=== PATIENT | female | born 1960 | race Caucasian/White ===

== ENCOUNTER → 2017-06-12 | Outpatient (CLI) | payer OTHER, MEDICARE ==
[~2017-06-12] MED LIST: AMI25 PO; ASPI-715 PO; ATEN-65 PO; ATOR20TA22 PO; BENZ100C4 PO; CHOL10005 PO; CHOL200025 PO; CIP500 PO; CLO5 PO; CLON-308 PO; CODE118S5 PO; DICL-190 PO; DICL-192 PO; DUL20 PO; DULO60CA51 PO; FLAX100041 PO; GABA-1 PO; HYDR-4309 PO; LEVO500T83 PO; LEVO750T11 PO; LISI20TA29 PO; LOR5/325 PO; METR-1 PO; METR1KIT TP; MIL50PT PO; MILN12.52 PO; NOR5/325 PO; OMEP-153 PO; OMEP-218 PO; OMEP40CA48 PO; ONDA4TAB SL; OXYC1TAB54 PO; PER PO; PHENA200 PO; PRED20TA6 PO; SUCR1ORA17 PO; TOLT2TAB PO; TOLT4CAP PO; TRAM-627 PO; VILA40TA PO; [UNRECOGNIZED DRUG - CODE] PO
--- NOTE | 2017-06-14 09:06 | RADIOLOGY IMAGING REPORT ---
[place] [facility] [place] YESI KLINE : [id number] MR: [id number] V: [id number] EXAM DATE: ORDERING PHYSICIAN: KIMBERLYN VAN TECHNOLOGIST: Dasia Lang PROCEDURE:BILATERAL DIAGNOSTIC DIGITAL MAMMOGRAM WITH CAD ASSISTED INTERPRETATION & 3D TOMOSYNTHESIS COMPARISON:Prior mammograms 05/17/16, 10/28/15, 05/26/15, 12/08/14 INDICATIONS:6 MO F/U FINDINGS: Moderately heterogeneous fibroglandular tissue is again seen throughout the breasts. The parenchymal pattern has remained stable allowing for difference in mammographic technique & patient positioning. The scattered calcifications seen throughout the breasts, left side more so than right. The calcifications appear to have remained relatively stable. There is no demonstration of malignant appearing mass, malignant appearing calcifications or other secondary sign of malignancy in either breast. DIAGNOSTIC CATEGORY 2--BENIGN FINDING. RECOMMENDATIONS: ROUTINE MAMMOGRAM AND CLINICAL EVALUATION. IMPRESSION: BIRADS 2: Benign finding No significant abnormality is seen Dictated by: Joceline Keller M.D. on 06/12/2017 at 16:59 Transcribed by: IZA on 06/13/2017 at 11:19 Approved by: Joceline Keller M.D. on 06/14/2017 at 9:05 [facility]
== END ==
LOC: MAMO 07:26
PROVIDERS: ATTEND Family Medicine
DX: R92.1 Mammographic calcification found on diagnostic imaging of breast (principal)
CPT/HCPCS: 77062; 77066

== ENCOUNTER → 2018-04-24 | Outpatient (CLI) | payer OTHER, MEDICARE ==
[~2018-04-24] MED LIST changes: -CLON-308 PO; +CLON-335 PO; -HYDR-4309 PO; +HYDR-653 PO
--- NOTE | 2018-04-24 12:04 | RADIOLOGY IMAGING REPORT ---
FACILITY: [facility] PATIENT NAME: Yoana Treviño : 1960 MR: [id number] V: [id number] EXAM DATE: ORDERING PHYSICIAN: KIMBERLYN VAN TECHNOLOGIST: Location: [facility] Patient: Yoana Treviño : 1960 Visit/Account:[id number] Date of Sevice: 04/24/2018 Exam type: CHEST PA AND LAT History: Cough for months, chest pressure Comparison: September 28, 2016 Findings: The lung are free of acute effusions, infiltrates or edema. The cardiac silhouette is normal in size . The trachea is midline. There are postsurgical changes lower cervical spine which are incompletel y imaged. IMPRESSION: 1. No acute cardiopulmonary process is seen Report Dictated By: Joceline Keller MD at 04/24/2018 11:59 AM Report E-Signed By: Joceline Keller MD at 04/24/2018 12:00 PM WSN:[email or web address]
== END ==
LOC: RAD 11:05
PROVIDERS: ATTEND Family Medicine
DX: R05 Cough (principal)
CPT/HCPCS: 71046

== ENCOUNTER → 2018-10-14 | Outpatient (CLI) | payer OTHER, MEDICARE | LOC: LAB 08:29 | PROVIDERS: ATTEND Nurse Practitioner Family | DX: R73.01 Impaired fasting glucose (principal); E87.8 Other disorders of electrolyte and fluid balance, not elsewhere classified; E55.9 Vitamin D deficiency, unspecified; E53.8 Deficiency of other specified B group vitamins; R53.81 Other malaise; E79.0 Hyperuricemia without signs of inflammatory arthritis and tophaceous disease | CPT/HCPCS: 36415; 82040; 82247; 82306; 82310; 82374; 82435; 82565; 82607; 82947; 83036; 84075; 84132; 84155; 84295; 84443; 84450; 84460; 84520; 84550 ==

== ENCOUNTER → 2018-10-21 | Outpatient (CLI) | payer OTHER, MEDICARE ==
--- NOTE | 2018-10-21 10:57 | EKG ---
FACILITY: [facility] - [place] PATIENT NAME: YEIS KLINE : [id number] MR: [id number] V: [id number] EXAM DATE: ORDERING PHYSICIAN: ROHAN MATTA TECHNOLOGIST: DEJUAN Lucero Reason : CP Blood Pressure : / mmHG Vent. Rate : 082 BPM Atrial Rate : 082 BPM P-R Int : 146 ms QRS Dur : 070 ms QT Int : 346 ms P-R-T Axes : 053 028 026 degrees QTc Int : [address]-T changes through precordial leads appear somewhat more prominent than previous EKG, but similar t o 02/22/14 Abnormal ECG Confirmed by KEELEY ZHENG ([id number]) on 10/21/2018 12:18:01 PM Referred By: SIGRID Confirmed By:KEELEY ZHENG
== END ==
LOC: LAB 10:36
PROVIDERS: ATTEND Nurse Practitioner Family
DX: R07.9 Chest pain, unspecified (principal); R53.83 Other fatigue; R06.00 Dyspnea, unspecified; R94.31 Abnormal electrocardiogram [ECG] [EKG]
CPT/HCPCS: 36415; 84484; 85379; 93005

== ENCOUNTER → 2018-10-29 | Outpatient (CLI) | payer OTHER, MEDICARE ==
[~2018-10-29] MED LIST changes: +REGADENOSON 0.4 MG/5 ML SYR ONE
--- NOTE | 2018-10-30 07:27 | RADIOLOGY IMAGING REPORT ---
FACILITY: [facility] PATIENT NAME: Yoana Treviño : 1960 MR: [id number] V: [id number] EXAM DATE: ORDERING PHYSICIAN: ROHAN MATTA TECHNOLOGIST: [place] [facility] [place] [facility] [place] Yoana Treviño : 1960 Visit/Account:[id number] Date of Sevice: 10/29/2018 EXAMINATION: Single isotope SPECT imaging with regadenoson infusion and gated SPECT imaging. DATE OF EXAMINATION: October 29, 2018. DATE OF INTERPRETATION: October 30, 2018. REQUESTING PHYSICIAN: ROHAN MATTA. INDICATION: The patient is a 57-year-old female evaluated for chest pain. PROCEDURE: After informed consent the patient received an intravenous injection of 11.9 mCi of Tc-99 m sestamibi followed at an appropriate time interval by rest imaging. The patient then subsequently received an intravenous infusion of 0.4 mg of regadenoson per protocol without complication. Resting heart rate was 71 bpm with a peak heart rate of 88 bpm. Blood pressure at rest was 125 / 85 and fol lowing infusion was 135 / 78. Baseline EKG demonstrates normal sinus rhythm with diffuse nonspecific ST and T wave changes. There were no EKG changes of ischemia following infusion. Symptoms were non specific. The patient then received an intravenous injection of 29.5 mCi of Tc-99m sestamibi followe d by stress imaging. RAW DATA: Examination of the summed raw data revealed a good quality study. MYOCARDIAL PERFUSION: The tomographic images demonstrate normal myocardial perfusion tracer uptake o n both stress and rest images. No fixed or reversible defects noted. GATED IMAGES: The gated images demonstrate an ejection fraction greater than 70% with no wall motion abnormality. IMPRESSION: 1. Normal myocardial perfusion scan with no evidence of ischemia or prior infarction 2. Normal myocardial perfusion scan. 3. Normal LV systolic function; LVEF greater than 70%. 4. Based on the results of this exam, the patient appears to be at low risk for future cardiovascular events. Report Dictated By: Rosy Bartlett at 10/30/2018 7:19 AM Report E-Signed By: Rosy Bartlett at 10/30/2018 7:21 AM WSN:[email or web address]
== END ==
LOC: NUC 01:05
PROVIDERS: ATTEND Nurse Practitioner Family
DX: R07.9 Chest pain, unspecified (principal); R53.83 Other fatigue; R06.00 Dyspnea, unspecified
CPT/HCPCS: 78452; 93017; A9500; J2785

== ENCOUNTER → 2018-11-14 | Outpatient (CLI) | payer OTHER, MEDICARE ==
[~2018-11-14] MED LIST changes: -REGADENOSON 0.4 MG/5 ML SYR ONE
--- NOTE | 2018-11-14 16:39 | RADIOLOGY IMAGING REPORT ---
FACILITY: [facility] PATIENT NAME: Yoana Treviño : 1960 MR: [id number] V: [id number] EXAM DATE: ORDERING PHYSICIAN: ROHAN MATTA TECHNOLOGIST: Location: [facility] [place] Patient: Yoana Treviño : 1960 Visit/Account:[id number] Date of Sevice: 11/14/2018 CHEST PA LAT HISTORY: Chest pain. Shortness of breath. COMPARISON: Chest x-ray April 24, 2018. FINDINGS: Cardiomediastinal contours: The heart size is normal. Lungs and pleura: There is no finding of an infiltrate, lymphadenopathy or pleural effusion. Bones/soft tissues: There are no findings of a fracture. Cervical spine: There has been multilevel anterior cervical fusion. This is a stable finding. IMPRESSION: No active disease in the chest. Report Dictated By: Brandyn Corrigan MD at 11/14/2018 4:31 PM Report E-Signed By: Brandyn Corrigan MD at 11/14/2018 4:31 PM WSN:[email or web address]
== END ==
LOC: RAD 15:20
PROVIDERS: ATTEND Nurse Practitioner Family
DX: R07.9 Chest pain, unspecified (principal); R06.00 Dyspnea, unspecified
CPT/HCPCS: 71046